=== PATIENT | male | born 1945 | race Caucasian/White ===

== ENCOUNTER 2016-08-07 10:57 | Emergency (ER) | payer MEDICARE, OTHER ==
[~2016-08-07] VITALS: Ht 180.3 cm; Wt 90.0 kg
[~2016-08-07 10:57] MED LIST: ATOR20TA; CYCL-375 PO; HYDR-4246 PO; METF-462 PO
[2016-08-07 11:01] VITALS: Ht 180.3 cm; Wt 90.0 kg
--- OUTSIDE RECORDS SUMMARY | 2016-08-07 11:01 | XMS REPORT ---
Author Author Isma Tilley Organization [employer] Address Unknown Phone Unavailable Care Team Providers Care Repack Room Worker Name Role Phone Isma Tilley CP Unavailable Allergies, Adverse Reactions, Alerts Substance Reaction Event Type N.K.D.A. Info Not Available Non Drug Allergy Problems Problem Type Condition ICD-9 Code Onset Dates Condition Status Assessment Depressive disorder, not elsewhere classified 311 Active Assessment Pain in joint, ankle and foot 719.47 Active Problem Diabetes mellitus without mention of complication, type II or unspecified type, not stated as uncontrolled 250.00 Active Problem Other specified disorders of thyroid 246.8 Active Problem Mixed hyperlipidemia 272.2 Active Assessment Diabetes mellitus without mention of complication, type II or unspecified type, not stated as uncontrolled 250.00 Active Assessment Restless legs syndrome [RLS] 333.94 Active Assessment Generalized osteoarthrosis, unspecified site 715.00 Active Assessment Mixed hyperlipidemia 272.2 Active Medications Medication Code System Code Instructions Start Date End Date Status Dosage Metformin & Diet Manage Prod NDC 0 500 MG Orally as directed Lexapro [facility] [address]-25 10 MG Orally Once a day Nov 19, 2011 1 tablet Simvastatin [facility] [place] [address]-05 40 MG Orally Once a day 1 tablet in the evening Arthrotec [facility] [address]-71 75-200 MG-MCG Orally Twice a day 1 tablet Procedures Procedure Coding System Code Date ESTAB PATIENT LEVEL IV CPT-4 87227 Nov 20, 2014 ASPIRATION INJ JOINT OR BURSA CPT-4 00272 Nov 20, 2014 DEPO MEDROL 80MG CPT-4 J1040 Nov 20, 2014 HG A1C LEVEL LT 7.0% CPT-4 3044F Nov 20, 2014 FOOT EXAMINATION PERFORMED CPT-4 G9226 Nov 20, 2014 Vital Signs Date/Time: Nov 20, 2014 Blood Pressure Systolic 130 mm Hg Cardiac Monitoring Heart Rate 66 /min Temperature 97.0 F BMI 33.08 Index Weight 224 lbs Height 69 in Blood Pressure Diastolic 90 mm Hg Results No Known Results Summary Purpose [employer] Submission
--- OUTSIDE RECORDS SUMMARY | 2016-08-07 11:01 | XMS REPORT ---
Author Author Isma Tilley Organization [employer] Address Unknown Phone Unavailable Care Team Providers Care Audio Production Engineer Name Role Phone Isma Tilley CP Unavailable Allergies No Known Allergies Problems Problem Type Condition ICD-9 Code Onset Dates Condition Status Problem Diabetes mellitus without mention of complication, type II or unspecified type, not stated as uncontrolled 250.00 Active Problem Other specified disorders of thyroid 246.8 Active Problem Mixed hyperlipidemia 272.2 Active Medications Medication Code System Code Instructions Start Date End Date Status Dosage Viagra [facility] [address]-69 100 MG Orally as dirc Dec 05, 2014 1 tablet as needed Lipitor [facility] [address]-96 40 MG Orally Once a day Dec 05, 2014 1 tablet Results No Known Results Summary Purpose [employer] Submission
--- OUTSIDE RECORDS SUMMARY | 2016-08-07 11:01 | XMS REPORT ---
Author Author Isma Tilley [facility] [employer] Address Unknown Phone Unavailable Care Team Providers Care Director Of Health Education Name Role Phone Isma Tilley CP Unavailable Allergies, Adverse Reactions, Alerts Substance Reaction Event Type N.K.D.A. Info Not Available Non Drug Allergy Problems Problem Type Condition Code Onset Dates Condition Status Assessment Type 2 diabetes mellitus without complications E11.9 Active Assessment Plantar fascial fibromatosis M72.2 Active Problem Diabetes mellitus without mention of complication, type II or unspecified type, not stated as uncontrolled 250.00 Active Problem Other specified disorders of thyroid 246.8 Active Problem Mixed hyperlipidemia 272.2 Active Assessment Encounter for immunization Z23 Active Assessment Mixed hyperlipidemia E78.2 Active Assessment Encounter for general adult medical examination with abnormal findings Z00.01 Active Assessment Pain in right shoulder M25.511 Active Medications Medication Code System Code Instructions Start Date End Date Status Dosage Metformin & Diet Manage Prod NDC 0 500 MG Orally BID 1 tablet Atorvastatin Calcium [facility] [address]-16 40 MG Orally Once a day Jan 17, 2015 1 tablet Diclofenac Sodium [facility] [address]-38 50 MG Orally Three times a day Jan 17, 2015 1 tablet Cyclobenzaprine HCl [facility] [address]-27 10 MG Orally qhs Jan 17, 2015 1 tablet Viagra [facility] [address]-15 100 MG Orally as dirc Dec 05, 2014 1 tablet as needed Lexapro [facility] [address]-82 10 MG Orally Once a day Nov 19, 2011 1 tablet Procedures Procedure Coding System Code Date Annual Wellness Visit - 1st CPT-4 G0438 Jan 17, 2015 FLU IMMUNIZE ORDER/ADMIN CPT-4 G8482 Jan 17, 2015 Influenza 3yr and up CPT-4 11392 Jan 17, 2015 Vital Signs Date/Time: Jan 17, 2015 Blood Pressure Systolic 150 mm Hg Cardiac Monitoring Heart Rate 78 /min Temperature 97.3 F BMI 33.67 Index Weight 228 lbs Height 69 in Blood Pressure Diastolic 88 mm Hg Oximetry 98 % Results No Known Results Immunizations Vaccine Administration Date Influenza 3yr and up Jan 17, 2015 Summary Purpose [employer] Submission
--- OUTSIDE RECORDS SUMMARY | 2016-08-07 11:01 | XMS REPORT ---
Author Author Tracey Valdez Organization [employer] Address Unknown Phone Unavailable Care Team Providers Care Slubber Machine Operator Name Role Phone Tracey Valdez CP Unavailable Allergies, Adverse Reactions, Alerts Substance Reaction Event Type N.K.D.A. Info Not Available Non Drug Allergy Problems Problem Type Condition Code Onset Dates Condition Status Problem Diabetes mellitus without mention of complication, type II or unspecified type, not stated as uncontrolled 250.00 Active Problem Other specified disorders of thyroid 246.8 Active Problem Mixed hyperlipidemia 272.2 Active Assessment Pain in right shoulder M25.511 Active Medications Medication Code System Code Instructions Start Date End Date Status Dosage Atorvastatin Calcium [facility] [address]-28 40 MG Orally Once a day Jan 17, 2015 1 tablet Lexapro [facility] [address]-20 10 MG Orally Once a day Nov 19, 2011 1 tablet Cyclobenzaprine HCl [facility] [address]-55 10 MG Orally qhs Jan 17, 2015 1 tablet Metformin & Diet Manage Prod NDC 0 500 MG Orally BID 1 tablet Diclofenac Sodium [facility] [address]-13 50 MG Orally Three times a day Jan 17, 2015 1 tablet Viagra [facility] [address]-97 100 MG Orally as dirc Dec 05, 2014 1 tablet as needed Procedures Procedure Coding System Code Date FLU IMMUNIZE ORDER/ADMIN CPT-4 G8482 Feb 02, 2015 ESTAB PATIENTLEVEL III CPT-4 74245 Feb 02, 2015 Vital Signs Date/Time: Feb 02, 2015 Blood Pressure Diastolic 70 mm Hg Blood Pressure Systolic 110 mm Hg Temperature 97.2 F BMI 33.67 Index Weight 228 lbs Height 69 in Results No Known Results Summary Purpose [employer] Submission
--- OUTSIDE RECORDS SUMMARY | 2016-08-07 11:01 | XMS REPORT ---
Author Author Isma Tilley Organization [employer] Address Unknown Phone Unavailable Care Team Providers Care Pulp Plant Supervisor Name Role Phone Isma Tilley CP Unavailable Allergies No Known Allergies Problems Problem Type Condition ICD-9 Code Onset Dates Condition Status Assessment Other specified disorders of thyroid 246.8 Active Problem Diabetes mellitus without mention of complication, type II or unspecified type, not stated as uncontrolled 250.00 Active Problem Other specified disorders of thyroid 246.8 Active Problem Mixed hyperlipidemia 272.2 Active Assessment Diabetes mellitus without mention of complication, type II or unspecified type, not stated as uncontrolled 250.00 Active Assessment Hypertrophy (benign) of prostate without urinary obstruction and other lower urinary tract symptoms [LUTS] 600.00 Active Assessment Other malaise and fatigue 780.79 Active Assessment Mixed hyperlipidemia 272.2 Active Medications Medication Code System Code Instructions Start Date End Date Status Dosage Metformin & Diet Manage Prod NDC 0 500 MG Orally as directed Arthrotec [facility] [address]-19 75-200 MG-MCG Orally Twice a day 1 tablet Simvastatin [facility] [address]-16 40 MG Orally Once a day 1 tablet in the evening Lexapro [facility] [address]-16 10 MG Orally Once a day Nov 19, 2011 1 tablet Lortab [facility] [address]-05 10-500 MG Orally every 6 hrs as directed Procedures Procedure Coding System Code Date DRAW FEE CPT-4 10889 Nov 13, 2014 Results No Known Results Summary Purpose [employer] Submission
[2016-08-07] MEDS ORDERED: ESCI10TA47 PO (11:27)
[2016-08-07] MEDS ORDERED: ATOR40TA64 PO (11:27)
[2016-08-07] MEDS ORDERED: BETA1TAB22 PO (11:28)
--- NOTE | 2016-08-07 11:37 | ERPDOC ---
Departure Disposition Decision Date: August 07, 2016 Disposition Decision Time: 13:20 Disposition: 01 DISCHARGED HOME, SELF-CARE Impression Impression Impression: Primary Impression: Contusion of ribs Additional Impression: Pulmonary nodule Severity: Moderate Condition: Improved Seen By: Physician only Patient Instructions: Fall Prevention (ED) Problems/Meds/Labs Reviewed?: Yes Medications reviewed and manag: Yes Additional Instructions: Percocet 5 mg every 4 hours as needed for pain. Follow-up on pulmonary nodules. You need to speak with your primary care provider. Follow up care ordered?: Yes Mental Status: Alert, Oriented Scripts Oxycodone HCl/Acetaminophen (Percocet 5-325 mg Tablet) 5-325 Tablet 1 TAB PO Q4HR for PAIN, #20 TAB Take 1 tablet, by mouth, 4 times a day. Prov: WELLINGTON MOSS MD 08/07/16 HPI - Fall/Injury General Chief Complaint: Fall Stated Complaint: FELL IN BATHTUB AND INJURED CHEST Time Seen by Provider: 11:34 HPI - Fall/Injury Initial Comments 70-year-old gentleman fell getting out of the tub. He fell onto his right side, landing on his wrist. He has significant pain mid axillary ribs. Pain with breathing and moving, also tender to palpation. No fever no chills, no other injuries. No dysuria or hesitancy or urgency, no abdominal pain. Ice having difficulty breathing, just has pain on deep breath. Allergies: Coded Allergies: No Known Allergies (Unverified , 08/07/16) Past History Past Medical History Metabolic: hypercholesterolemia, hypertension Surgical History General: gallbladder Joint: shoulder Review of Systems Pulmonary Respiratory: see HPI GI Upper Abdomen: see HPI Musculoskeletal General: see HPI Physical Exam General General Nourishment: well nourished, well developed, appears stated age Distress Description Patient does have pain with movement. Vitals and Pain First Documented Vital Signs Date Time Temp Pulse Resp B/P Pulse Ox O2 Delivery O2 Flow Rate FiO2 08/07/16 11:01 97.6 67 20 173/74 97 Room Air Weight: Kilograms: 90.000 Height (feet): 5 Height (inches): 11.00 Triage Pain Scale: Normal Exams: Head: Normocephalic w/o trauma Chest/Resp: Clear all ford, with good airflow, and symmetry bilaterally CV: Regular rate and rhythm, without murmur or gallop, Pulses 2+ all extremities, capillary refill, <2 seconds all ext., no pedal edema noted Neurologic: Patient is alert, and oriented, cranial nerves, motor/sensory/ cerebellar, exams w/o gross deficits, to observation Psychiatric: Patient exhibits, appropriate attention, emotion and affect Musculoskeletal (brief) Comments Tender to palpation mid axillary right side fifth through eighth ribs. Differential Diagnoses Considering: Dislocation, Fracture, Other (rib contusion, pulmonary contusion, fracture.) Progress Results/Orders Orders Procedure Category Date Status Time Ketorolac (Toradol) PHA 08/07/16 Complete 11:45 Ribs Left With Ap RAD 08/07/16 Resulted Chest 11:40 Medications Current ED Medications Ketorolac Tromethamine (Toradol) 60 mg O ONCE IM Last administered on t 11:59; Start 08/07/16 at 11:45; Stop 08/07/16 at 11:46; Status DC Progress Progress Patient shows no acute fractures of ribs. I will write a prescription for a few Percocet, in the event that he is hurting too bad and cannot sleep. However he would prefer not to take meds if possible, I certainly agree with that. He does have to questionable calcified lesions on chest x-ray. He will follow- up with his primary care provider to review this. WELLINGTON MSOS MD August 07, 2016 11:37
[2016-08-07] MEDS ORDERED: KETOROLAC 60mg/2ml INJECTION IM ONE (11:45)
--- NOTE | 2016-08-07 12:07 | NUR ---
TO XRY PER WC
--- NOTE | 2016-08-07 12:34 | DI ---
Indication: ITS.REASON: rib pain, fall PROCEDURE: RIBS LEFT WITH AP CHEST: Encounter: Initial Comparison: None FINDINGS: Chest: There are two opacity seen in the left upper lobe. An 8 mm nodular opacity seen projecting just below the left second rib after the crossing of the fifth posterior rib. More inferiorly there is an additional 1.5 cm nodule projecting over the seventh posterior rib. No consolidative pneumonia. There is no pleural effusion or pneumothorax identified. The heart size, pulmonary vasculature and mediastinum are within normal limits. AP and oblique views of the left ribs: No displaced rib fracture is seen. IMPRESSION: 1. No acute cardiopulmonary abnormality. 2. Two left upper lobe pulmonary nodules are indeterminate. Recommend correlation with any available prior chest x-rays to evaluate for the contrast study of these findings. If comparisons aren't available a noncontrast chest CT is recommended for further evaluation. .
[2016-08-07 13:00] VITALS: TEMP 97.8
--- NOTE | 2016-08-07 13:00 | NUR ---
STATUS SAYS PAIN FEELS BETTER BUT STILL RATES 8/10. VS IMPROVED
--- NOTE | 2016-08-07 13:06 | NUR ---
REPORT TO MAKENNA RAY
[2016-08-07 13:20] VITALS: BP 121/68; PULSE 51; RESP 18; O2SAT 98
[2016-08-07] MEDS ORDERED: OXYC1TAB8 PO (13:22)
== END 2016-08-07 13:20 | disposition home or self-care (01) ==
LOC: ED 10:57
DX: S20.211A Contusion of right front wall of thorax, initial encounter (principal); R91.1 Solitary pulmonary nodule; W18.2XXA Fall in (into) shower or empty bathtub, initial encounter; Y93.E1 Activity, personal bathing and showering; Y92.002 Bathroom of unspecified non-institutional (private) residence as the place of occurrence of the external cause; Y99.8 Other external cause status
CPT/HCPCS: 71101; 96372; 99283; J1885